=== PATIENT | male | born 1955 | race Caucasian/White ===

== ENCOUNTER 2017-05-22 05:15 | Inpatient (IN) | payer OTHER ==
[~2017-05-22] VITALS: Ht 185.4 cm; Wt 240.0 kg
[2017-05-22 03:00] VITALS: BP 109/65
[~2017-05-22 05:15] MED LIST: ASPI-1265 PO; ATOR20TA66 PO; DILT300C26 PO; NO HOME MEDS; RIVA20TA PO; THIA100T70 PO; [UNRECOGNIZED DRUG - CODE] PO; [UNRECOGNIZED DRUG - CODE] PO
[2017-05-22 05:52] LABS: BASOPHILS # (AUTO) 0.1 X10'3 (0-0.2); BASOPHILS % (AUTO) 0.6 % (0-1); EOSINOPHILS # (AUTO) 0.2 X10'3 (0-0.9); HEMATOCRIT 47.1 % (42.0-52.0); HEMOGLOBIN 15.5 g/dl (14.0-17.9); LYMPHOCYTES # (AUTO) 1.7 X10'3 (1.1-4.8); LYMPHOCYTES % (AUTO) 14.6 % (21-51); MEAN CORPUSCULAR HEMOGLOBIN 26.4 PG (27.0-31.0); MEAN CORPUSCULAR VOLUME 79.8 FL (78-98); MEAN PLATELET VOLUME 7.8 FL (7.4-10.4); MONOCYTES # (AUTO) 1.1 X10'3 (0-0.9); MONOCYTES % (AUTO) 9.2 % (2-12); NEUTROPHILS # (AUTO) 8.5 X10'3 (1.8-7.7); NEUTROPHILS % (AUTO) 73.6 % (42-75); PLATELET COUNT 309 X10'3 (140-440); RED BLOOD COUNT 5.89 X10'6 (4.70-6.10); RED CELL DISTRIBUTION WIDTH 20.3 % (11.5-14.5); WHITE BLOOD COUNT 11.5 X10'3 (4.5-11.0)
[2017-05-22 06:01] LABS: INR 1.3 INR; PARTIAL THROMBOPLASTIN TIME 33 SECONDS (22-32); PROTHROMBIN TIME 12.9 SECONDS (9.0-12.0)
[2017-05-22 06:11] LABS: ALANINE AMINOTRANSFERASE 29 U/L (12-78); ALBUMIN 3.5 G/DL (3.4-5.0); ALBUMIN/GLOBULIN RATIO 0.9 (1.1-1.5); ALKALINE PHOSPHATASE 64 IU/L (46-116); ANION GAP 10 (8-16); ASPARTATE AMINO TRANSFERASE 19 U/L (10-37); BILIRUBIN,TOTAL 0.7 MG/DL (0.1-1.0); BLOOD UREA NITROGEN 15 MG/DL (7-18); BUN/CREATININE RATIO 11.9 (5.4-32.0); CALCIUM 8.5 MG/DL (8.5-10.1); CHLORIDE 106 MMOL/L (99-107); CREATININE 1.26 MG/DL (0.60-1.10); GLUCOSE 95 MG/DL (70-104); POTASSIUM 4.3 MMOL/L (3.5-5.1); SODIUM 141 MMOL/L (135-145); TOTAL CARBON DIOXIDE 24.9 MMOL/L (24-32); TOTAL PROTEIN 7.3 G/DL (6.4-8.2); eGFR 59 ML/MIN
[2017-05-22] MEDS ORDERED: iohexol 350MG/ML 100ml bottle IV ONE (06:45)
[2017-05-22] MEDS ORDERED: diltiazem 5mg/ml 5ml inj. IV ONE (08:55)
[2017-05-22] MEDS ORDERED: [UNRECOGNIZED DRUG - OTHER] IV ONE ×2 (09:20)
[2017-05-22] MEDS: aspirin 81mg tab.chew PO SCH (10:59)
[2017-05-22 11:00] VITALS: BP 144/95
[2017-05-22] MEDS ORDERED: pantoprazole 40 MG vial IV ONE (11:00)
[2017-05-22 11:45] LABS: CLARITY,URINE Clear (Clear); COLOR,URINE Yellow (Yellow); GLUCOSE, URINE Negative (Neg); KETONES,URINE Trace mg/dl (Neg); LEUKOCYTE ESTERASE ,URINE Negative (Neg); NITRITES, URINE Negative (Neg); OCCULT BLOOD,URINE Negative (Neg); PH,URINE 7.5 (4.8-8.0); PROTEIN,URINE Negative (Neg)
[2017-05-22 11:52] LABS: UA COLLECTION TYPE CLN CATCH MIDSTREAM
[2017-05-22 15:00] VITALS: BP 128/64
[2017-05-22] MEDS ORDERED: FLEC100T PO (17:12)
[2017-05-22 19:00] VITALS: BP 97/50
[2017-05-22 23:00] VITALS: BP 108/84
[2017-05-23 03:00] VITALS: BP 109/65
[2017-05-23 05:15] LABS: BASOPHILS # (AUTO) 0.1 X10'3 (0-0.2); BASOPHILS % (AUTO) 0.5 % (0-1); EOSINOPHILS # (AUTO) 0.2 X10'3 (0-0.9); EOSINOPHILS % (AUTO) 1.8 % (0-6); HEMATOCRIT 47.1 % (42.0-52.0); HEMOGLOBIN 15.5 g/dl (14.0-17.9); LYMPHOCYTES # (AUTO) 1.3 X10'3 (1.1-4.8); MEAN CORPUSCULAR HEMOGLOBIN 26.5 PG (27.0-31.0); MEAN CORPUSCULAR HGB CONC 32.9 % (33.0-36.5); MEAN CORPUSCULAR VOLUME 80.4 FL (78-98); MEAN PLATELET VOLUME 7.6 FL (7.4-10.4); MONOCYTES # (AUTO) 0.9 X10'3 (0-0.9); MONOCYTES % (AUTO) 7.5 % (2-12); NEUTROPHILS # (AUTO) 9.5 X10'3 (1.8-7.7); NEUTROPHILS % (AUTO) 79.2 % (42-75); PLATELET COUNT 304 X10'3 (140-440); RED BLOOD COUNT 5.86 X10'6 (4.70-6.10); RED CELL DISTRIBUTION WIDTH 20.2 % (11.5-14.5); WHITE BLOOD COUNT 11.9 X10'3 (4.5-11.0)
[2017-05-23 05:33] LABS: PARTIAL THROMBOPLASTIN TIME 31 SECONDS (22-32)
[2017-05-23 05:42] LABS: ALBUMIN 3.1 G/DL (3.4-5.0); ANION GAP 10 (8-16); BLOOD UREA NITROGEN 17 MG/DL (7-18); BUN/CREATININE RATIO 13.5 (5.4-32.0); CALCIUM 8.3 MG/DL (8.5-10.1); CHLORIDE 107 MMOL/L (99-107); CREATININE 1.26 MG/DL (0.60-1.10); GLUCOSE 91 MG/DL (70-104); SODIUM 140 MMOL/L (135-145); eGFR 59 ML/MIN
[2017-05-23 07:00] VITALS: BP 126/84
[2017-05-23] MEDS: aspirin 81mg tab.chew PO SCH (07:51)
[2017-05-23] MEDS ORDERED: FOLIC ACID PO SCH (08:00)
[2017-05-23] MEDS ORDERED: GLUCOSAMINE SULFATE 1000 MG PO SCH (08:00)
[2017-05-23] MEDS ORDERED: folic acid 1mg tablet PO SCH (08:00)
[2017-05-23] MEDS ORDERED: atorvastatin 20mg tablet PO SCH (08:00)
[2017-05-23] MEDS ORDERED: DILTIAZEM HCL PO SCH (08:00)
[2017-05-23] MEDS ORDERED: rivaroxaban 20mg tablet PO SCH (08:00)
[2017-05-23] MEDS ORDERED: thiamine 100mg tablet PO SCH (08:00)
[2017-05-23] MEDS ORDERED: GLUCOSAMINE 1000 MG PO SCH (08:00)
[2017-05-23] MEDS ORDERED: diltiazem CD 300mg capsule (once-daily) PO SCH (08:00)
[2017-05-23 11:00] VITALS: BP 121/49
[2017-05-23] MEDS ORDERED: DILT180C95 PO (11:08)
== END 2017-05-23 12:30 | disposition home or self-care (01) | DRG 309 ==
LOC: ER 05:15 → ED HOLD 10:13 → PCU 3S 11:22
PROVIDERS: ADMIT Internal Medicine; ATTEND Family Medicine
PROC: B32T1ZZ Computerized Tomography (CT Scan) of Left Pulmonary Artery using Low Osmolar Contrast (ICD-10-PCS; principal; 2017-05-22)
PROC: B3201ZZ Computerized Tomography (CT Scan) of Thoracic Aorta using Low Osmolar Contrast (ICD-10-PCS; 2017-05-22)
PROC: B32S1ZZ Computerized Tomography (CT Scan) of Right Pulmonary Artery using Low Osmolar Contrast (ICD-10-PCS; 2017-05-22)
DX: I48.2 Chronic atrial fibrillation (principal); Z68.44 Body mass index [BMI] 60.0-69.9, adult; K76.0 Fatty (change of) liver, not elsewhere classified; F17.210 Nicotine dependence, cigarettes, uncomplicated; E78.5 Hyperlipidemia, unspecified; F41.9 Anxiety disorder, unspecified; R59.1 Generalized enlarged lymph nodes; Z79.899 Other long term (current) drug therapy; Z79.01 Long term (current) use of anticoagulants; Z79.82 Long term (current) use of aspirin
CPT/HCPCS: 36415; 71045; 71275; 80048; 80053; 81003; 83735; 83880; 84443; 84484; 85025; 85610; 85730; 87070; 93005; C9113; J3490; Q9967

== ENCOUNTER 2017-07-13 05:27 | Inpatient (IN) | payer OTHER ==
[~2017-07-13] VITALS: Ht 185.4 cm; Wt 106.7 kg
[~2017-07-13 05:27] MED LIST changes: +DILT180C95 PO; -DILT300C26 PO; +FLEC100T PO; -NO HOME MEDS
[2017-07-13 06:24] LABS: BASOPHILS % (AUTO) 0.2 % (0-1); EOSINOPHILS # (AUTO) 0.2 X10'3 (0-0.9); EOSINOPHILS % (AUTO) 1.5 % (0-6); HEMATOCRIT 42.8 % (42.0-52.0); HEMOGLOBIN 13.9 g/dl (14.0-17.9); LYMPHOCYTES # (AUTO) 1.2 X10'3 (1.1-4.8); LYMPHOCYTES % (AUTO) 10.2 % (21-51); MEAN CORPUSCULAR HEMOGLOBIN 26.1 PG (27.0-31.0); MEAN CORPUSCULAR HGB CONC 32.5 % (33.0-36.5); MEAN CORPUSCULAR VOLUME 80.3 FL (78-98); MEAN PLATELET VOLUME 7.5 FL (7.4-10.4); MONOCYTES # (AUTO) 0.9 X10'3 (0-0.9); NEUTROPHILS # (AUTO) 9.4 X10'3 (1.8-7.7); NEUTROPHILS % (AUTO) 80.1 % (42-75); PLATELET COUNT 301 X10'3 (140-440); RED BLOOD COUNT 5.33 X10'6 (4.70-6.10); RED CELL DISTRIBUTION WIDTH 20.1 % (11.5-14.5); WHITE BLOOD COUNT 11.7 X10'3 (4.5-11.0)
[2017-07-13 06:34] LABS: INR 1.3 INR; PARTIAL THROMBOPLASTIN TIME 33 SECONDS (22-32); PROTHROMBIN TIME 13.5 SECONDS (9.0-12.0)
[2017-07-13 06:48] LABS: ALANINE AMINOTRANSFERASE 26 U/L (12-78); ALBUMIN 3.3 G/DL (3.4-5.0); ALBUMIN/GLOBULIN RATIO 1.1 (1.1-1.5); ALKALINE PHOSPHATASE 59 IU/L (46-116); ANION GAP 12 (8-16); ASPARTATE AMINO TRANSFERASE 18 U/L (10-37); BILIRUBIN,TOTAL 1.2 MG/DL (0.1-1.0); BLOOD UREA NITROGEN 11 MG/DL (7-18); BUN/CREATININE RATIO 8.3 (5.4-32.0); CHLORIDE 107 MMOL/L (99-107); CREATININE 1.32 MG/DL (0.60-1.10); GLUCOSE 100 MG/DL (70-104); POTASSIUM 3.5 MMOL/L (3.5-5.1); SODIUM 142 MMOL/L (135-145); TOTAL CARBON DIOXIDE 22.7 MMOL/L (24-32); TOTAL PROTEIN 6.4 G/DL (6.4-8.2); eGFR 56 ML/MIN
[2017-07-13] MEDS ORDERED: nitroGLYCERIN 0.2mg/hour patch TD ONE (07:40)
[2017-07-13] MEDS: metoprolol tartrate 1mg/ml inj IV SCH ×3 (07:40→08:34)
[2017-07-13] MEDS ORDERED: aspirin 325mg tablet PO ONE (09:10)
[2017-07-13] MEDS ORDERED: acetaminophen 325mg tablet PO PRN ×2 (09:10)
[2017-07-13] MEDS ORDERED: nitroGLYCERIN 0.4mg SUBLingual tab SL PRN ×2 (09:10)
[2017-07-13] MEDS ORDERED: furosemide 10 MG/1 ML 10ml inj IV ONE (09:10)
[2017-07-13] MEDS ORDERED: morphine 4 MG/ML inj SYRINge IV PRN ×2 (09:10)
[2017-07-13] MEDS ORDERED: regadenoson 0.4mg/5ml syringe IV ONE (09:10)
[2017-07-13] MEDS ORDERED: metoprolol tartrate 1mg/ml inj IV PRN (09:10)
[2017-07-13] MEDS ORDERED: CAFFEINE CITRATE 60 MG/3 ML injection vial IV PRN (09:10)
[2017-07-13 10:40] LABS: CHOL/HDL RATIO 2.7 (0.00-4.99); CHOLESTEROL 108 MG/DL (0-200); HDL CHOLESTEROL 40 MG/DL (35-60); LDL CHOLESTEROL 64 MG/DL (50-100); TRIGLYCERIDES 37 MG/DL (20-135)
[2017-07-13 15:12] VITALS: BP 119/67
[2017-07-13 18:00] VITALS: BP 118/72
[2017-07-13] MEDS: potassium Cl 20 mEq SR tablet PO SCH (20:07)
[2017-07-13] MEDS: flecainide 50mg tablet PO SCH (20:07)
[2017-07-13] MEDS: furosemide 10 MG/1 ML 10ml inj IV SCH (20:09)
[2017-07-13] MEDS ORDERED: temazepam 15mg capsule PO PRN (21:00)
[2017-07-13 22:00] VITALS: BP 108/68
[2017-07-14] VITALS (11 sets, daily range): BP systolic 105–130; BP diastolic 67–91
[2017-07-14] MEDS ORDERED: DILT300C26 (06:13)
[2017-07-14] MEDS ORDERED: DOXY-224 (06:13)
[2017-07-14] MEDS ORDERED: DILT180C49 (06:13)
[2017-07-14] MEDS ORDERED: ALBU18HF2 (06:13)
[2017-07-14 06:57] LABS: BASOPHILS # (AUTO) 0.1 X10'3 (0-0.2); BASOPHILS % (AUTO) 1.1 % (0-1); EOSINOPHILS # (AUTO) 0.3 X10'3 (0-0.9); EOSINOPHILS % (AUTO) 2.8 % (0-6); HEMATOCRIT 43.9 % (42.0-52.0); HEMOGLOBIN 14.6 g/dl (14.0-17.9); LYMPHOCYTES # (AUTO) 1.8 X10'3 (1.1-4.8); LYMPHOCYTES % (AUTO) 20.1 % (21-51); MEAN CORPUSCULAR HEMOGLOBIN 26.4 PG (27.0-31.0); MEAN CORPUSCULAR HGB CONC 33.2 % (33.0-36.5); MEAN CORPUSCULAR VOLUME 79.5 FL (78-98); MONOCYTES # (AUTO) 0.8 X10'3 (0-0.9); MONOCYTES % (AUTO) 8.8 % (2-12); NEUTROPHILS % (AUTO) 67.2 % (42-75); PLATELET COUNT 287 X10'3 (140-440); RED BLOOD COUNT 5.52 X10'6 (4.70-6.10); RED CELL DISTRIBUTION WIDTH 19.9 % (11.5-14.5); WHITE BLOOD COUNT 8.9 X10'3 (4.5-11.0)
[2017-07-14 07:21] LABS: ALANINE AMINOTRANSFERASE 26 U/L (12-78); ALBUMIN 2.9 G/DL (3.4-5.0); ALBUMIN/GLOBULIN RATIO 0.9 (1.1-1.5); ALKALINE PHOSPHATASE 54 IU/L (46-116); ANION GAP 8 (8-16); ASPARTATE AMINO TRANSFERASE 16 U/L (10-37); BILIRUBIN,TOTAL 0.9 MG/DL (0.1-1.0); BLOOD UREA NITROGEN 11 MG/DL (7-18); BUN/CREATININE RATIO 9.3 (5.4-32.0); CALCIUM 8.2 MG/DL (8.5-10.1); CHLORIDE 107 MMOL/L (99-107); CREATININE 1.18 MG/DL (0.60-1.10); GLUCOSE 85 MG/DL (70-104); POTASSIUM 3.3 MMOL/L (3.5-5.1); SODIUM 142 MMOL/L (135-145); TOTAL CARBON DIOXIDE 26.6 MMOL/L (24-32); eGFR 63 ML/MIN
[2017-07-14] MEDS ORDERED: atorvastatin 20mg tablet PO SCH (08:00)
[2017-07-14] MEDS ORDERED: thiamine 100mg tablet PO SCH (08:00)
[2017-07-14] MEDS ORDERED: aspirin 81mg tab.chew PO SCH (08:00)
[2017-07-14] MEDS ORDERED: diltiazem CD 180mg cap (once-daily) PO SCH (08:00)
[2017-07-14] MEDS ORDERED: rivaroxaban 20mg tablet PO SCH (08:00)
[2017-07-14] MEDS ORDERED: folic acid 1mg tablet PO SCH (08:00)
[2017-07-14] MEDS: potassium Cl 20 mEq SR tablet PO SCH (08:20)
[2017-07-14] MEDS: flecainide 50mg tablet PO SCH (08:20)
[2017-07-14] MEDS ORDERED: regadenoson 0.4mg/5ml syringe IV ONE (09:09)
[2017-07-14] MEDS ORDERED: CAFFEINE CITRATE 60 MG/3 ML injection vial IV ONE (09:09)
[2017-07-14] MEDS ORDERED: pneumococcal 23-VAL P-sac vacc 25 mcg/0.5ml vial IMVAC ONE (10:00)
[2017-07-14] MEDS: furosemide 10 MG/1 ML 10ml inj IV SCH (10:48)
[2017-07-14] MEDS ORDERED: magnesium 2GM in 50ml NS 50 ML IV PRN (11:20)
[2017-07-14] MEDS ORDERED: potassium Cl 40MEQ/NS 500ml 500 ML IV PRN ×2 (11:20)
[2017-07-14] MEDS ORDERED: magnesium Cl slow-release 64mg tablet PO PRN (11:20)
[2017-07-14] MEDS ORDERED: potassium Cl 20 mEq SR tablet PO PRN (11:20)
[2017-07-14] MEDS ORDERED: magnesium 4gm in 100ml NS 100 ML IV PRN (11:20)
[2017-07-14] MEDS: potassium Cl 20 mEq SR tablet PO PRN ×2 (12:50→16:55)
[2017-07-14 13:19] LABS: BASOPHILS % (AUTO) 0.3 % (0-1); EOSINOPHILS # (AUTO) 0.2 X10'3 (0-0.9); EOSINOPHILS % (AUTO) 1.6 % (0-6); HEMATOCRIT 47.2 % (42.0-52.0); HEMOGLOBIN 15.5 g/dl (14.0-17.9); LYMPHOCYTES # (AUTO) 1.6 X10'3 (1.1-4.8); LYMPHOCYTES % (AUTO) 16.2 % (21-51); MEAN CORPUSCULAR HEMOGLOBIN 26.2 PG (27.0-31.0); MEAN CORPUSCULAR HGB CONC 32.8 % (33.0-36.5); MEAN CORPUSCULAR VOLUME 79.7 FL (78-98); MEAN PLATELET VOLUME 7.5 FL (7.4-10.4); NEUTROPHILS # (AUTO) 7.2 X10'3 (1.8-7.7); NEUTROPHILS % (AUTO) 71.9 % (42-75); PLATELET COUNT 335 X10'3 (140-440); RED BLOOD COUNT 5.93 X10'6 (4.70-6.10); RED CELL DISTRIBUTION WIDTH 20.5 % (11.5-14.5); WHITE BLOOD COUNT 10.1 X10'3 (4.5-11.0)
[2017-07-14 13:29] LABS: ALBUMIN 3.2 G/DL (3.4-5.0); ANION GAP 8 (8-16); BLOOD UREA NITROGEN 14 MG/DL (7-18); BUN/CREATININE RATIO 10.1 (5.4-32.0); CALCIUM 8.4 MG/DL (8.5-10.1); CHLORIDE 107 MMOL/L (99-107); CREATININE 1.39 MG/DL (0.60-1.10); GLUCOSE 93 MG/DL (70-104); POTASSIUM 3.7 MMOL/L (3.5-5.1); SODIUM 141 MMOL/L (135-145); TOTAL CARBON DIOXIDE 26.3 MMOL/L (24-32); eGFR 52 ML/MIN
== END 2017-07-14 19:50 | disposition home or self-care (01) | DRG 291 ==
LOC: ER 05:27 → ED HOLD 09:08 → PCU 3S 15:13
PROVIDERS: ADMIT Internal Medicine; ATTEND Internal Medicine
PROC: 4A02XM4 Measurement of Cardiac Total Activity, External Approach (ICD-10-PCS; principal; 2017-07-14)
PROC: 3E073KZ Introduction of Other Diagnostic Substance into Coronary Artery, Percutaneous Approach (ICD-10-PCS; 2017-07-14)
DX: I50.43 Acute on chronic combined systolic (congestive) and diastolic (congestive) heart failure (principal); J18.1 Lobar pneumonia, unspecified organism; J44.0 Chronic obstructive pulmonary disease with (acute) lower respiratory infection; I48.2 Chronic atrial fibrillation; F17.210 Nicotine dependence, cigarettes, uncomplicated; F41.9 Anxiety disorder, unspecified; Z23 Encounter for immunization
CPT/HCPCS: 36415; 71045; 78452; 80048; 80053; 80061; 83880; 84484; 85025; 85610; 85730; 87040; 87070; 90732; 93005; 93017; 93306; 99285; A9500; J1940; J3490

== ENCOUNTER 2017-08-31 06:50 | Day surgery (SDC) | payer OTHER ==
[2017-08-30 09:23] LABS: BASOPHILS # (AUTO) 0.1 X10'3 (0-0.2); BASOPHILS % (AUTO) 0.7 % (0-1); EOSINOPHILS # (AUTO) 0.2 X10'3 (0-0.9); EOSINOPHILS % (AUTO) 3.2 % (0-6); HEMATOCRIT 44.8 % (42.0-52.0); HEMOGLOBIN 14.8 g/dl (14.0-17.9); LYMPHOCYTES # (AUTO) 1.7 X10'3 (1.1-4.8); LYMPHOCYTES % (AUTO) 23.2 % (21-51); MEAN CORPUSCULAR HEMOGLOBIN 26.2 PG (27.0-31.0); MEAN CORPUSCULAR HGB CONC 33.1 % (33.0-36.5); MEAN CORPUSCULAR VOLUME 79.2 FL (78-98); MEAN PLATELET VOLUME 8.1 FL (7.4-10.4); MONOCYTES # (AUTO) 0.5 X10'3 (0-0.9); MONOCYTES % (AUTO) 6.5 % (2-12); NEUTROPHILS # (AUTO) 4.7 X10'3 (1.8-7.7); NEUTROPHILS % (AUTO) 66.4 % (42-75); PLATELET COUNT 240 X10'3 (140-440); RED BLOOD COUNT 5.66 X10'6 (4.70-6.10); RED CELL DISTRIBUTION WIDTH 21.2 % (11.5-14.5); WHITE BLOOD COUNT 7.2 X10'3 (4.5-11.0)
[2017-08-30 09:33] LABS: PARTIAL THROMBOPLASTIN TIME 26 SECONDS (22-32); PROTHROMBIN TIME 10.8 SECONDS (9.0-12.0)
[2017-08-30 09:37] LABS: PLATELET ESTIMATE NORMAL
[2017-08-30 09:38] LABS: ACANTHOCYTES 1+; ANISOCYTOSIS 3+
[2017-08-30 09:39] LABS: ALANINE AMINOTRANSFERASE 41 U/L (12-78); ALBUMIN 3.8 G/DL (3.4-5.0); ALBUMIN/GLOBULIN RATIO 1.2 (1.1-1.5); ALKALINE PHOSPHATASE 71 IU/L (46-116); ANION GAP 7 (8-16); ASPARTATE AMINO TRANSFERASE 25 U/L (10-37); BILIRUBIN,TOTAL 0.7 MG/DL (0.1-1.0); BLOOD UREA NITROGEN 18 MG/DL (7-18); BUN/CREATININE RATIO 13.6 (5.4-32.0); CALCIUM 8.6 MG/DL (8.5-10.1); CHLORIDE 104 MMOL/L (99-107); CREATININE 1.32 MG/DL (0.60-1.10); ELLIPTOCYTES FEW; GLUCOSE 92 MG/DL (70-104); POTASSIUM 4.7 MMOL/L (3.5-5.1); SODIUM 140 MMOL/L (135-145); TOTAL CARBON DIOXIDE 28.6 MMOL/L (24-32); TOTAL PROTEIN 7.1 G/DL (6.4-8.2); eGFR 55 ML/MIN
[2017-08-31] VITALS (11 sets, daily range): BP systolic 92–128; BP diastolic 54–90
[~2017-08-31] VITALS: Ht 185.4 cm; Wt 106.7 kg
[~2017-08-31 06:50] MED LIST changes: +ALBU18HF2; -THIA100T70 PO; -[UNRECOGNIZED DRUG - CODE] PO
[2017-08-31] MEDS ORDERED: POTA10TA19 PO (07:11)
[2017-08-31] MEDS ORDERED: CARV25TA PO (07:11)
[2017-08-31] MEDS ORDERED: ATOR20TA PO (07:11)
[2017-08-31] MEDS ORDERED: VARE0.5T PO (07:11)
[2017-08-31] MEDS ORDERED: FURO40TA4 PO (07:11)
[2017-08-31] MEDS ORDERED: IBUP200C74 PO (07:12)
[2017-08-31] MEDS ORDERED: LORazepam 0.5 MG tablet PO PRN (07:15)
[2017-08-31] MEDS ORDERED: nitroGLYCERIN 0.4mg SUBLingual tab SL PRN (07:15)
[2017-08-31] MEDS ORDERED: diphenhydrAMINE 25mg capsule PO PRN (07:15)
[2017-08-31] MEDS ORDERED: normal saline 1000ml 1,000 ML IV SCH (07:15)
[2017-08-31] MEDS ORDERED: fentaNYL/PF 50MCG/1 ML 2ML syringe ONE ×2 (08:15→09:32)
[2017-08-31] MEDS ORDERED: iohexol 350MG/ML 100ml bottle IV ONE (08:15)
[2017-08-31] MEDS ORDERED: LIDOcaine 1% w/EPI 1:100,000 30ml vial (MDV) ONE (08:15)
[2017-08-31] MEDS ORDERED: iohexol 350 MG/ML 50ML vial IV ONE (08:15)
[2017-08-31] MEDS ORDERED: midazolam 2 mg/2 ml injection ONE (08:15)
[2017-08-31] MEDS ORDERED: ondansetron/PF 4mg/2ml inj IV PRN (11:45)
[2017-08-31] MEDS ORDERED: HYDROcodone/acetaminophen 5mg/325mg tablet PO PRN (11:45)
[2017-08-31] MEDS ORDERED: HYDROcodone/acetaminophen 10/325mg tab PO PRN (11:45)
[2017-08-31] MEDS ORDERED: OXAZEpam 15mg capsule PO PRN (11:45)
[2017-08-31] MEDS ORDERED: sodium chloride 0.45% 1,000 ML IV ONE (11:45)
[2017-08-31] MEDS ORDERED: proCHLORperazine 10 MG/2 ml inj IV PRN (11:45)
[2017-08-31 16:16] LABS: ISTAT Hct MIX 44 %PCV (42-52); ISTAT O2 SATURATION MIX VENOUS 57 % (60-80); ISTAT SOURCE MIX
[2017-09-01 05:26] LABS: ISTAT HGB ART 14.6 g/dl (14.0-18.0); ISTAT Hct ART 43 %PCV (42-52); ISTAT O2 SATURATION ARTERIAL 99 % (95-98); ISTAT SOURCE ART
== END 2017-08-31 15:50 | disposition home or self-care (01) ==
LOC: SSTAY O 06:50
PROVIDERS: ATTEND Internal Medicine Cardiovascular Disease
DX: I25.10 Atherosclerotic heart disease of native coronary artery without angina pectoris (principal); F41.9 Anxiety disorder, unspecified; I48.2 Chronic atrial fibrillation; J44.0 Chronic obstructive pulmonary disease with (acute) lower respiratory infection; F10.21 Alcohol dependence, in remission; I11.0 Hypertensive heart disease with heart failure; I50.9 Heart failure, unspecified; Z87.891 Personal history of nicotine dependence; Z79.1 Long term (current) use of non-steroidal anti-inflammatories (NSAID); Z98.890 Other specified postprocedural states; Z79.899 Other long term (current) drug therapy
CPT/HCPCS: 36415; 71046; 80053; 82803; 85014; 85025; 85610; 85730; 93005; 93460; 99152; 99153; A6257; A6402; C1760; C1769; J1644; J2250; J3010; J3490; J7030; Q0163; Q9967; A4620

== ENCOUNTER 2020-05-21 08:50 | Day surgery (SDC) | payer BC, MEDICARE ==
[2020-05-16 09:48] LABS: BASOPHILS # (AUTO) 0.1 X10'3 (0-0.2); BASOPHILS % (AUTO) 1.1 % (0-1); EOSINOPHILS # (AUTO) 0.4 X10'3 (0-0.9); EOSINOPHILS % (AUTO) 5.7 % (0-6); HEMATOCRIT 39.1 % (42.0-52.0); HEMOGLOBIN 13.3 g/dl (14.0-17.9); LYMPHOCYTES # (AUTO) 1.4 X10'3 (1.1-4.8); LYMPHOCYTES % (AUTO) 19.6 % (21-51); MEAN CORPUSCULAR HEMOGLOBIN 30.2 PG (27.0-31.0); MEAN CORPUSCULAR HGB CONC 34.1 g/dL (33.0-36.5); MEAN CORPUSCULAR VOLUME 88.5 FL (78-98); MEAN PLATELET VOLUME 7.1 FL (7.4-10.4); MONOCYTES # (AUTO) 0.8 X10'3 (0-0.9); MONOCYTES % (AUTO) 10.6 % (2-12); NEUTROPHILS # (AUTO) 4.5 X10'3 (1.8-7.7); PLATELET COUNT 305 X10'3 (140-440); RED BLOOD COUNT 4.42 X10'6 (4.70-6.10); RED CELL DISTRIBUTION WIDTH 15.1 % (11.5-14.5); WHITE BLOOD COUNT 7.2 X10'3 (4.5-11.0)
[2020-05-16 09:54] LABS: PARTIAL THROMBOPLASTIN TIME 31 SECONDS (22-32)
[2020-05-16 09:59] LABS: ALANINE AMINOTRANSFERASE 31 U/L (12-78); ALBUMIN 3.8 G/DL (3.4-5.0); ALKALINE PHOSPHATASE 63 IU/L (46-116); ANION GAP 10 (8-16); ASPARTATE AMINO TRANSFERASE 20 U/L (10-37); BILIRUBIN,TOTAL 0.4 MG/DL (0.1-1.0); BLOOD UREA NITROGEN 13 MG/DL (7-18); BUN/CREATININE RATIO 11.4 (5.4-32.0); CALCIUM 9.1 MG/DL (8.5-10.1); CHLORIDE 100 MMOL/L (99-107); CREATININE 1.14 MG/DL (0.60-1.10); GLUCOSE 90 MG/DL (70-104); POTASSIUM 4.3 MMOL/L (3.5-5.1); SODIUM 136 MMOL/L (135-145); TOTAL CARBON DIOXIDE 25.9 MMOL/L (24-32); TOTAL PROTEIN 7.6 G/DL (6.4-8.2); eGFR 65 ML/MIN
[~2020-05-21] VITALS: Ht 185.4 cm; Wt 115.8 kg
[2020-05-21] VITALS (12 sets, daily range): BP systolic 89–150; BP diastolic 57–77
[~2020-05-21 08:50] MED LIST changes: -ASPI-1265 PO; +ATOR20TA PO; -ATOR20TA66 PO; +CARV25TA PO; -DILT180C95 PO; -FLEC100T PO; +FURO40TA4 PO; +IBUP-2417 PO; +POTA10TA19 PO; +VARE0.5T PO; -[UNRECOGNIZED DRUG - CODE] PO
[2020-05-21] MEDS ORDERED: nitroGLYCERIN 0.4mg SUBLingual tab SL PRN (09:05)
[2020-05-21] MEDS ORDERED: normal saline 1,000 ML IV SCH (09:05)
[2020-05-21] MEDS ORDERED: LORazepam 0.5 MG tablet PO PRN (09:05)
[2020-05-21] MEDS ORDERED: diphenhydrAMINE 25mg capsule PO PRN (09:05)
[2020-05-21] MEDS ORDERED: MULT-1085 PO (09:34)
[2020-05-21] MEDS ORDERED: CEPH750C9 PO (09:34)
[2020-05-21] MEDS ORDERED: LISI20TA28 PO (09:34)
[2020-05-21] MEDS ORDERED: Ibuprofen PO (09:34)
[2020-05-21] MEDS ORDERED: ASCO500W7 PO (09:34)
[2020-05-21] MEDS ORDERED: LIDOcaine 1% (10mg/ml)w/preservative injection 20ml MDV ONE (10:43)
[2020-05-21] MEDS ORDERED: midazolam 1 mg/ML 2ml injection ONE (10:43)
[2020-05-21] MEDS ORDERED: fentaNYL/PF 50MCG/1 ML 2ML syringe ONE (10:43)
[2020-05-21] MEDS ORDERED: iohexol 350MG/ML 100ml bottle IV ONE (10:44)
[2020-05-21] MEDS ORDERED: iohexol 350 MG/ML 50ML vial IV ONE (10:44)
[2020-05-21] MEDS ORDERED: OXAZEpam 15mg capsule PO PRN (12:10)
[2020-05-21] MEDS ORDERED: HYDROcodone/acetaminophen 5mg/325mg tablet PO PRN (12:10)
[2020-05-21] MEDS ORDERED: HYDROcodone/acetaminophen 10/325mg tab PO PRN (12:10)
[2020-05-21] MEDS ORDERED: proCHLORperazine 10 MG/2 ml inj IV PRN (12:10)
[2020-05-21] MEDS ORDERED: ondansetron/PF 4mg/2ml inj IV PRN (12:10)
== END 2020-05-21 18:55 | disposition home or self-care (01) ==
LOC: SSTAY O 08:50
PROVIDERS: ATTEND Internal Medicine Cardiovascular Disease
DX: R94.39 Abnormal result of other cardiovascular function study (principal); I48.20 Chronic atrial fibrillation, unspecified; I25.10 Atherosclerotic heart disease of native coronary artery without angina pectoris; E78.5 Hyperlipidemia, unspecified; Z87.891 Personal history of nicotine dependence; Z79.899 Other long term (current) drug therapy; Z98.890 Other specified postprocedural states
CPT/HCPCS: 36415; 71046; 80053; 85025; 85610; 85730; 93005; 93458; 99152; C1760; C1769; J1644; J2001; J2250; J3010; J7030; Q0163; Q9967; 99153; A6258

== ENCOUNTER 2025-01-10 13:05 | Outpatient (CLI) | payer BC, MEDICARE ==
[~2025-01-10 13:05] MED LIST changes: -ALBU18HF2; +ASCO500W7 PO; +CEPH750C9 PO; +Ibuprofen PO; +LISI20TA28 PO; +MULT-1085 PO; +POTA-192 PO; -POTA10TA19 PO; -VARE0.5T PO
--- NOTE | 2025-01-10 15:29 | RADIOLOGY REPORT ---
Exam: CT CT PELVIS History: UNIL INGUINAL HERNIA, W/O OBST OR GANGR, NOT SPCF RECUR Comparison Study: None Technique: Multidetector CT of the pelvis was performed from iliac crests to pubic symphysis after the administration of intravenous contrast was administered during this examination. Portal venous imaging was obtained. Axial, coronal and sagittal multiplanar reformats were performed by the technologist on a separate workstation. Radiation Dose : CT Dose: CTDI volume is 33 mGy. Dose-length product is 1231 mGy*cm Findings: Visualized bowel: No bowel wall thickening or dilatation. Postsurgical changes in the distal colon. Fluid-filled colon may represent diarrheal state. Ascites: Absent Lymphadenopathy: No pelvic or mesenteric lymphadenopathy. Vasculature: The visualized abdominal aorta is normal in size and caliber. Atherosclerotic calcifications. Musculoskeletal: No acute osseous abnormality. Bladder: Diffuse bladder wall thickening. Soft tissues: Scarring in the left inguinal canal region may be from previous surgery. No sizable fat containing inguinal hernia is noted. Tiny lipoma in the right adductor musculature. IMPRESSION: Diffuse bladder wall thickening. Correlate for cystitis. Fluid-filled colon could be seen with diarrheal state. Scarring in the left inguinal canal region may be from previous surgery. No sizable fat containing inguinal hernia is noted. All CT scans at this medical facility are performed using dose modulation techniques as appropriate to a performed exam including the following: Automated exposure control was utilized; adjustment of the MA and/or KV according to patient size; and use of iterative reconstruction technique.
== END 2025-01-10 23:59 | disposition home or self-care (01) ==
LOC: RAD 13:05
DX: K40.90 Unilateral inguinal hernia, without obstruction or gangrene, not specified as recurrent (principal); N32.89 Other specified disorders of bladder; N30.90 Cystitis, unspecified without hematuria
CPT/HCPCS: 72192